=== PATIENT | female | born 1930 | race Caucasian/White ===

== ENCOUNTER 2017-08-05 11:01 | Emergency (ER) | payer MEDICARE, OTHER ==
[~2017-08-05] VITALS: Ht 154.9 cm; Wt 59.0 kg
[2017-08-05 11:14] VITALS: BP 125/62
[2017-08-05 13:00] LABS: Urine Bacteria FEW /hpf (None Seen); Urine Blood 1+ /uL (Negative); Urine Hyaline Cast FEW /lpf (0 - 2); Urine Mucus FEW (None Seen); Urine Specific Gravity 1.017 (1.001-1.035); Urine WBC 788 /hpf (0 - 5); Urine WBC Clumps PRESENT /hpf (None Seen)
[2017-08-05] MEDS ORDERED: PHENAZOPYRIDINE HCL 100 MG TAB PO ONE (13:30)
[2017-08-05] MEDS ORDERED: cefTRIAXone SOD 500 MG VL ONE (13:49)
[2017-08-05] MEDS ORDERED: cefTRIAXone SOD 500 MG VL IM ONE (14:00)
== END 2017-08-05 14:13 | disposition home or self-care (01) ==
LOC: ER 11:01
DX: N39.0 Urinary tract infection, site not specified (principal)
CPT/HCPCS: 81001; 96372; 99283; J0696

== ENCOUNTER 2018-06-04 12:05 | Emergency (ER) | payer MEDICARE ==
[~2018-06-04] VITALS: Ht 157.5 cm; Wt 59.9 kg
[2018-06-04 13:34] LABS: Basophils # (auto) 0.1 uL; Basophils % (auto) 0.9 % (0.0-2.0); Eosinophils # (auto) 0.1 uL; Eosinophils % (auto) 1.5 % (0.0-7.0); Hematocrit 42.6 % (36.0-46.0); Hemoglobin 14.6 g/dL (12.2-16.2); Lymphocytes # (auto) 1.9 uL; Lymphocytes % (auto) 32.9 % (10.0-50.0); Mean Corpuscular Hemoglobin 32.9 pg (28.0-32.0); Mean Corpuscular Hgb Conc. 34.3 g/dL (32.0-36.0); Mean Corpuscular Volume 95.9 fL (80.0-100.0); Monocytes # (auto) 0.4 uL; Neutrophils # (auto) 3.4 uL; Neutrophils % (auto) 57.7 % (37.0-80.0); Nucleated Red Blood Cells % 0.1 %; Platelet Count (auto) 274 10^3/uL (140-450); Red Blood Cells 4.44 10^6/uL (4.0-5.20); Red Cell Distribution Width 13.5 % (11.8-14.3); White Blood Cell 5.9 10^3/uL (4.4-10.8)
[2018-06-04 13:55] LABS: Albumin 3.5 g/dL (3.4-5.0); Calcium 8.7 mg/dL (8.5-10.1); Chloride 107 mmol/L (98-107); Sodium 137 mmol/L (136-145)
[2018-06-04 14:04] LABS: Alanine Aminotransferase 13 U/L (13-56); Alkaline Phosphatase 104 U/L (45-117); Anion Gap 5 (5-15); Aspartate Aminotransferase 14 U/L (15-37); BUN/Creatinine Ratio 15.7; Bilirubin, Total 0.5 mg/dL (0.2-1.0); Blood Urea Nitrogen 14 mg/dL (7-18); Carbon Dioxide 25 mmol/L (21-32); GFR African American 77 mL/min; GFR Non-African American 64 mL/min; Glucose 127 mg/dL (74-106)
[2018-06-04] MEDS ORDERED: ACETAMINOPHEN 325 MG TAB PO ONE ×2 (18:30)
[2018-06-04 19:44] LABS: Urine Bacteria NONE SEEN /hpf (None Seen); Urine Blood TRACE /uL (Negative); Urine Mucus FEW (None Seen); Urine Specific Gravity 1.026 (1.001-1.035); Urine WBC 63 /hpf (0 - 5)
[2018-06-04 20:07] VITALS: BP 138/66
[2018-06-04] MEDS ORDERED: cefTRIAXone SOD 1,000 MG VL ONE (20:12)
[2018-06-04] MEDS ORDERED: LIDOCAINE 2% (LOCAL ANESTH.) PF 5ml SDV ONE (20:13)
[2018-06-04] MEDS ORDERED: cefTRIAXone W LIDOCAINE 1 GM IM IM ONE (20:15)
[2018-06-04] MEDS ORDERED: KETOROLAC TROMETH 60MG/2ML VIAL IM ONE (20:15)
== END 2018-06-04 21:17 | disposition home or self-care (01) ==
LOC: ER 12:09
DX: J32.3 Chronic sphenoidal sinusitis (principal); N39.0 Urinary tract infection, site not specified; M47.812 Spondylosis without myelopathy or radiculopathy, cervical region
CPT/HCPCS: 36415; 70450; 71046; 72125; 80053; 81001; 83735; 84484; 85025; 93005; 94761; 96372; 99284; J0696; J1885; J2001